=== PATIENT | female | born 1995 | race Caucasian/White ===

== ENCOUNTER 2020-02-18 07:46 | Inpatient (IN) | payer OTHER ==
[~2020-02-18] VITALS: Ht 175.3 cm; Wt 100.7 kg
[~2020-02-18 07:46] MED LIST: NAPROSYN500 MG PO; TAMIFLU75 MG PO
[2020-02-18 08:49] LABS: HEMOGLOBIN 12.8 gm/dl (12.3-15.3); RED BLOOD COUNT 4.47 M/UL (4.00-5.10); WHITE BLOOD COUNT 12.8 K/UL (4.5-11.0)
[2020-02-18] MEDS ORDERED: PRENATAL VITAM1 EAC8 PO (10:56)
[2020-02-18] MEDS ORDERED: ZYRTEC10 M3 PO (10:58)
[2020-02-18] MEDS ORDERED: OMEPRAZOLE20 MG PO (10:59)
[2020-02-18] MEDS ORDERED: IBUPROFEN600 MG PO (17:00)
[2020-02-18] MEDS ORDERED: DOCUSATE SODIU100 MG PO (17:00)
[2020-02-19 04:54] LABS: HEMOGLOBIN 10.1 gm/dl (12.3-15.3)
== END 2020-02-19 18:49 | disposition home or self-care (01) | DRG 807 ==
LOC: GENOP 07:46 → OB 10:14
PROVIDERS: Obstetrics & Gynecology; ADMIT Obstetrics & Gynecology
PROC: 10E0XZZ Delivery of Products of Conception, External Approach (ICD-10-PCS; principal; 2020-02-18)
PROC: 0UQMXZZ Repair Vulva, External Approach (ICD-10-PCS; 2020-02-18)
PROC: 3E0234Z Introduction of Serum, Toxoid and Vaccine into Muscle, Percutaneous Approach (ICD-10-PCS; 2020-02-18)
DX: O42.92 Full-term premature rupture of membranes, unspecified as to length of time between rupture and onset of labor (principal); Z37.0 Single live birth; O70.0 First degree perineal laceration during delivery; O99.334 Smoking (tobacco) complicating childbirth; F17.210 Nicotine dependence, cigarettes, uncomplicated; O76 Abnormality in fetal heart rate and rhythm complicating labor and delivery; Z3A.38 38 weeks gestation of pregnancy; Z23 Encounter for immunization
CPT/HCPCS: 36415; 51702; 82800; 85014; 85018; 85025; 90707; J7120